=== PATIENT | female | born 1985 | race Two or more races ===

== ENCOUNTER 2024-08-05 14:00 | Inpatient (IN) | payer OTHER ==
[~2024-08-05] VITALS: Ht 160 cm; Wt 112.5 kg
[2024-08-11 09:13] VITALS: BP 125/75
[2024-08-11] MEDS ORDERED: PRENATAL TABLE1 EAC1 PO (09:48)
[2024-08-11] MEDS ORDERED: RINGERS SOLUTION,LACTATED 1,000 ML IV SCH ×2 (10:00→19:15)
[2024-08-11] MEDS ORDERED: MORPHINE SULFATE 4 MG/ML CARTRIDGE IV PRN ×2 (10:00→19:15)
[2024-08-11 10:19] LABS: HEMATOCRIT 36.5 % (36.0-45.00); HEMOGLOBIN 12.3 g/dL (12.0-15.00); MEAN CORPUSCULAR HEMOGLOBIN 29.9 pg (27.00-32.0); MEAN CORPUSCULAR HGB CONC 33.6 g/dl (32.0-36.0); PLATELET COUNT 331 K/uL (150-450); RED CELL DISTRIBUTION WIDTH 16.4 % (11.5-14.5)
[2024-08-11 10:45] LABS: INR 0.95; PARTIAL THROMBOPLASTIN TIME 26.4 SECONDS (22.0-34.0); PROTHROMBIN TIME 10.4 SECONDS (9.0-11.5)
[2024-08-11 10:52] VITALS: BP 110/72
[2024-08-11 11:25] LABS: ALBUMIN 2.6 gm/dL (3.4-5.0); BILIRUBIN TOTAL 0.29 mg/dL (0.3-1.2); CALCIUM 9.7 mg/dL (8.5-10.1); CREATININE SERUM 0.52 mg/dL (0.55-1.02); GFR 130.6; GLOBULINA 3.7 G/DL (2.4-3.5); POTASSIUM 3.93 mEq/L (3.5-5.1); TOTAL PROTEIN 6.3 gm/dL (6.4-8.2)
[2024-08-11] MEDS ORDERED: OXYTOCIN 500 ML IV ONE (13:30)
[2024-08-11 15:22] VITALS: BP 113/55
[2024-08-11] MEDS ORDERED: KETOROLAC TROMETHAMINE 30 MG VIAL IV SCH (19:14)
[2024-08-11] MEDS ORDERED: OXYTOCIN 1,000 ML IV SCH (19:15)
[2024-08-11] MEDS ORDERED: OXYTOCIN 10 UNITS/ML VIAL IV ONE (21:30)
[2024-08-11] MEDS ORDERED: ERYTHROMYCIN BASE OPHT 1GM EACH TUBE OP ONE (21:30)
[2024-08-11] MEDS ORDERED: MEPERIDINE HCL 25 MG/ML AMPUL IV ONE (21:30)
[2024-08-11] MEDS ORDERED: CEFAZOLIN SODIUM 1,000 MG VIAL IV SCH (21:30)
[2024-08-11 22:18] VITALS: BP 118/80
[2024-08-12] MEDS ORDERED: ACETAMINOPHEN 500 MG GEL..CAP PO SCH
[2024-08-12 01:00] VITALS: BP 118/75
[2024-08-12] MEDS ORDERED: SIMETHICONE 125 MG CAPSULE PO SCH (01:00)
[2024-08-12] MEDS ORDERED: GABAPENTIN 300 MG CAPSULE PO SCH (01:00)
[2024-08-12 07:04] LABS: HEMOGLOBIN 10.2 g/dL (12.0-15.00); MEAN CELL VOLUME 89.5 fL (80.00-100.00); MEAN CORPUSCULAR HEMOGLOBIN 29.5 pg (27.00-32.0); MEAN CORPUSCULAR HGB CONC 32.9 g/dl (32.0-36.0); PLATELET COUNT 288 K/uL (150-450); RED BLOOD COUNT 3.47 M/uL (4.00-6.00); RED CELL DISTRIBUTION WIDTH 16.7 % (11.5-14.5)
[2024-08-12] MEDS ORDERED: KETOROLAC TROMETHAMINE 10 MG TABLET PO SCH (08:00)
[2024-08-12] MEDS ORDERED: OxyCODONE HCL 5 MG TABLET (ROXICODONE) PO PRN (08:00)
[2024-08-12 08:26] VITALS: BP 117/77
[2024-08-12 13:40] VITALS: BP 99/66
[2024-08-12 16:00] VITALS: BP 115/80; O2SAT 98
[2024-08-12 20:00] VITALS: BP 102/71
[2024-08-13 01:11] VITALS: BP 102/67
[2024-08-13 05:06] VITALS: BP 109/65
[2024-08-13 14:25] VITALS: BP 95/59
== END 2024-08-13 17:18 | disposition home or self-care (01) | DRG 788 ==
LOC: LDR 08-11 09:31 → OB/GYN 08-11 21:07
PROVIDERS: Obstetrics & Gynecology; ADMIT Obstetrics & Gynecology Maternal & Fetal Medicine; ATTEND Obstetrics & Gynecology Maternal & Fetal Medicine
PROC: 4A1HXCZ Monitoring of Products of Conception, Cardiac Rate, External Approach (ICD-10-PCS; 2024-08-11)
PROC: 10D00Z1 Extraction of Products of Conception, Low, Open Approach (ICD-10-PCS; principal; 2024-08-11 19:30)
DX: O82 Encounter for cesarean delivery without indication (principal); O62.1 Secondary uterine inertia; Z3A.39 39 weeks gestation of pregnancy; Z37.0 Single live birth; Z20.822 Contact with and (suspected) exposure to COVID-19